=== PATIENT | male | born 1950 | race Caucasian/White ===

== ENCOUNTER 2017-03-18 19:36 | Emergency (ER) | payer MEDICARE, OTHER ==
--- NOTE | ~2017-03-18 | CR63 ---
[facility] A Service of [facility] & [facility] RADIOLOGY TEXT RESULTS PATIENT: FCO PEREZ LOCATION: SED : 50 UNIT #: [id number] AGE: [address]: Amol Diaz MD SEX: M ORDER DR: [id number] [place] [id number] E MR#: [id number] Acc #: [id number] NAME: FCO PEREZ. : 1950 SEX: M STUDY DATE/TIME: 03/18/2017 19:26 UNIT: SED ROOM: STUDY DESCRIPTION: CR Chest 2 View Attending Physician: Amol Diaz M.D. Ordering Physician: Amol Diaz M.D. Primary Care Physician: Marisa Yoo M.D. MEDICAL IMAGING REPORT This report is preliminary unless electronic signature is present. EXAM PA and lateral chest. HISTORY Cough for 6 months. FINDINGS 2 views of the chest demonstrate moderate mid thoracic kyphosis with associated [id number]-funofrsu hypertrophic spurring. Cardiac size and pulmonary vascularity are normal. Mild pleural thickening in the lung apices. No infiltrates or effusions. IMPRESSION No acute findings and no active disease. Dictated by... Jack Oro M.D. THIS IS AN ELECTRONICALLY VERIFIED REPORT Jack Oro M.D. at 03/18/2017 11:46 PM KIRIT/ana TD: 03/18/2017 21:51 JOB #: [id number] MEDICAL IMAGING REPORT Page 1 of 1
[~2017-03-18 19:36] MED LIST: ALBUTEROL2.5 MG/3 M; DESYREL50 MG PO; GABAPENTIN300 MG PO; GLUCOPHAGE500 MG PO; HYDROCODON-ACE1 EAC5 PO; HYDROCODON-ACE1 EAC9 PO; MONTELUKAST SOD10 MG PO; MOTRIN600 MG PO; NO MEDICATIONS; OXYCODONE PO
[2017-05-22] MEDS ORDERED: OXYCODONE HCL10 MG PO (12:31)
[2017-05-22] MEDS ORDERED: ALBUTEROL17 GM INH (12:32)
[2017-06-01] MEDS ORDERED: PROAIR HFA8.5 GM INH (06:39)
== END 2017-03-18 20:26 | disposition home or self-care (01) ==
LOC: SED 19:36
DX: R05 Cough (principal); E11.9 Type 2 diabetes mellitus without complications; F17.200 Nicotine dependence, unspecified, uncomplicated
CPT/HCPCS: 71020; 82947; 99283

== ENCOUNTER → 2017-04-07 | Outpatient (CLI) | payer MEDICARE, OTHER ==
[~2017-04-07] MED LIST changes: +ALBUTEROL17 GM INH; +OXYCODONE HCL10 MG PO; +PROAIR HFA8.5 GM INH
--- NOTE | ~2017-04-07 | CT55 ---
[facility] A Service of [facility] & [facility] RADIOLOGY TEXT RESULTS PATIENT: FCO PEREZ LOCATION: [facility] : 50 UNIT #: [id number] AGE: [address]: SOPHIA HUI MD SEX: M ORDER DR: [id number] [address] [address] [id number] O MR#: [id number] Acc #: [id number] NAME: FCO PEREZ : 1950 SEX: M STUDY DATE/TIME: 04/07/2017 13:57 UNIT: [facility] ROOM: STUDY DESCRIPTION: CT Chest W Con Attending Physician: Marisa Hui M.D. Referring Physician: Marisa Hui M.D. Ordering Physician: Marisa Hui M.D. Primary Care Physician: Marisa Hui M.D. MEDICAL IMAGING REPORT This report is preliminary unless electronic signature is present. EXAM CT of the chest with contrast 04/07/2017 INDICATIONS Cough for 3 weeks. Abnormal weight loss. Smoking history. TECHNIQUE CT of the chest was performed following the administration of IV contrast. Coronal and sagittal reformatted images were obtained. This CT exam was performed with one or more of the following radiation dose reduction techniques: automatic exposure control, adjustment of mA and/or kV according to patient size, and iterative reconstruction. COMPARISON STUDIES There are no comparisons available. FINDINGS There are emphysematous of the lungs. There is a micronodule in the posterior left upper lobe on image 29. No airspace consolidation. There is no suspicious lymphadenopathy. Coronary artery calcification. Small hiatal hernia. No pleural effusion. Limited imaging of the upper abdomen demonstrates a cyst in the liver. There is dilatation of the pancreatic duct with some coarse pancreatic calcification suggesting either chronic pancreatitis or previous episodes of pancreatitis. Correlate clinically. Bone windows demonstrate degenerative changes of the thoracic spine. IMPRESSION 1. Emphysema. 2. Micronodule in the left upper lobe posteriorly. This can be followed in 1 year to document stability based on the updated Fleischner Society guidelines. 3. Additional findings as described. [facility] A Service of [facility] & [facility] RADIOLOGY TEXT RESULTS PATIENT: FCO PEREZ LOCATION: [facility] : 50 UNIT #: [id number] AGE: [address]: SOPHIA HUI MD SEX: M ORDER DR: 1. Dictated by... Justo Colorado M.D. THIS IS AN ELECTRONICALLY VERIFIED REPORT Justo Colorado M.D. at 04/10/2017 7:37 AM [place] TD: 04/07/2017 17:25 JOB #: [id number] MEDICAL IMAGING REPORT Page 1 of 1
[2017-04-07 14:00] LABS: POC - CREATININE 1.14 mg/dL (0.64-1.27); POC - GFR >60.0 mL/min (>60)
== END | disposition home or self-care (01) ==
LOC: SCT 13:22
PROVIDERS: Family Medicine
DX: R63.4 Abnormal weight loss (principal); F17.200 Nicotine dependence, unspecified, uncomplicated; R05 Cough; J43.9 Emphysema, unspecified; R91.1 Solitary pulmonary nodule
CPT/HCPCS: 71260; 82565; Q9967

== ENCOUNTER → 2017-06-01 | Day surgery (SDC) | payer MEDICARE, OTHER ==
--- NOTE | ~2017-06-01 | OR ---
Unit #: [id number] #: [id number] Patient: FCO PEREZ [id number] [address] [address] [id number] O MR#: [id number] NAME: FCO PEREZ. ROOM: Date of Procedure: 06/01/2017 Admission Date: 06/01/2017 Surgeon: Klever Barajas III, M.D. : 1950 Attending Physician: Klever Barajas III, M.D. Referring Physician: Klever Barajas III, M.D. Primary Care Physician: Marisa Yoo M.D. OPERATIVE REPORT PREOPERATIVE DIAGNOSIS Screening colonoscopy. POSTOPERATIVE DIAGNOSES Mild scattered diverticulosis and mild internal hemorrhoids. PROCEDURE PERFORMED Colonoscopy to cecum. ANESTHESIA 6 mg of Versed and 100 mg of Demerol. SPECIMENS None. COMPLICATIONS None apparent. INDICATIONS FOR PROCEDURE This is a 67-year-old gentleman, who is here today for screening colonoscopy. He understands risks, benefits and wishes to proceed. DESCRIPTION OF PROCEDURE After consent was obtained, the patient was brought to the endoscopy suite and placed in the left lateral decubitus position. We titrated the above sedation and I performed a rectal exam and did not feel any masses. The scope was placed within the rectal vault. Air was insufflated. I navigated the scope all the way to the cecum without any difficulty. He had normal mucosa. No evidence of any polyps. There was mild scattered diverticular disease. There were no other abnormalities seen except for when the scope was retroflexed within the rectal vault. He had some mild internal hemorrhoidal tissue seen. The scope was straightened and carefully withdrawn. The patient tolerated the procedure without any problems and returned to the recovery room in stable condition. Dictated by... Klever Barajas III, M.D. VCL/modl Unit #: [id number] #: [id number] Patient: FCO PEREZ TD: 06/01/2017 08:18 JOB #: [id number] OPERATIVE REPORT Page 1 of 1 X Klever Barajas III, MD PROCEDURE OPERATIVE NOTE
== END | disposition home or self-care (01) ==
LOC: COPS 05:40
DX: Z12.11 Encounter for screening for malignant neoplasm of colon (principal); K57.30 Diverticulosis of large intestine without perforation or abscess without bleeding; K64.8 Other hemorrhoids; J44.9 Chronic obstructive pulmonary disease, unspecified; E11.9 Type 2 diabetes mellitus without complications; Z79.84 Long term (current) use of oral hypoglycemic drugs
CPT/HCPCS: 82947; J2175; J2250